=== PATIENT | male | born 1980 | race Two or more races ===

== ENCOUNTER 2017-04-27 12:04 | Emergency (ER) | payer MEDICAID ==
[~2017-04-27] VITALS: Ht 170.2 cm; Wt 57.0 kg
[2017-04-27] MEDS ORDERED: LIDOCAINE HCL 1%/EPI 1:200,000 30 ML VIAL MC ONE (13:15)
[2017-04-27] MEDS ORDERED: TETANUS, DIPHTHERIA, PERTUSSIS VAC/PF 0.5ML (>7YR OLD) IM ONE (13:15)
[2017-04-27 15:00] VITALS: BP 110/75
== END 2017-04-27 15:00 | disposition home or self-care (01) ==
LOC: ER 13:27
DX: S01.112A Laceration without foreign body of left eyelid and periocular area, initial encounter (principal); F17.200 Nicotine dependence, unspecified, uncomplicated; W22.8XXA Striking against or struck by other objects, initial encounter; Y93.89 Activity, other specified; Y92.89 Other specified places as the place of occurrence of the external cause; Y99.0 Civilian activity done for income or pay
CPT/HCPCS: 12011; 90471; 90715; 99283

== ENCOUNTER 2021-08-11 11:55 | Emergency (ER) | payer MEDICAID ==
[~2021-08-11] VITALS: Ht 175.3 cm; Wt 58.0 kg
[2021-08-11] MEDS ORDERED: BACITRACIN 15GM TUBE TOP ONE (13:00)
[2021-08-11] MEDS ORDERED: TETANUS, DIPHTHERIA, PERTUSSIS VAC/PF 0.5ML (>10YR OLD) IM ONE (13:00)
[2021-08-11] MEDS ORDERED: BO1 TP (13:08)
[2021-08-11] MEDS ORDERED: IBUP-2029 MT (13:08)
[2021-08-11] MEDS ORDERED: IBUPROFEN 600MG TABLET PO ONE (13:15)
[2021-08-11] MEDS ORDERED: BACITRACIN ZINC OINT UDPKT TOP SCH (13:30)
[2021-08-11 13:31] VITALS: BP 105/73
== END 2021-08-11 13:45 | disposition home or self-care (01) ==
LOC: ER 11:55
DX: T22.00XA Burn of unspecified degree of shoulder and upper limb, except wrist and hand, unspecified site, initial encounter (principal); T31.0 Burns involving less than 10% of body surface; T79.9XXA Unspecified early complication of trauma, initial encounter; X08.8XXA Exposure to other specified smoke, fire and flames, initial encounter; Y93.89 Activity, other specified; Y92.89 Other specified places as the place of occurrence of the external cause; Y99.8 Other external cause status
CPT/HCPCS: 16000; 90471; 90715; 99283